=== PATIENT | female | born 1980 | race Caucasian/White ===

== ENCOUNTER 2022-03-15 09:37 | Outpatient (CLI) | payer OTHER | END 2022-03-15 09:38 | disposition home or self-care (01) | LOC: BICMAMMO 09:37 | PROVIDERS: ATTEND Registered Nurse | DX: N63.11 Unspecified lump in the right breast, upper outer quadrant (principal) | CPT/HCPCS: 77066; G0279 ==

== ENCOUNTER 2022-05-03 11:29 | Inpatient (IN) | payer SELFPAY ==
[2022-05-03 11:59] LABS: Hemoglobin 14.5 g/dL (12.0-16.0); Mean Corpuscular HGB CONC 31.8 g/dL (32.0-36.0); Mean Corpuscular Hemoglobin 29.3 pg (27.0-31.0); Mean Corpuscular Volume 92.3 fL (78.0-98.0); Mean Platelet Volume 9.8 fL (7.4-10.4); Platelet Count 227 thou/uL (130-400); RBC Distribution Width 13.6 % (11.5-14.5); Red Blood Cell (RBC) Count 4.94 mill/uL (4.20-5.40); White Blood Cell (WBC) Count 25.6 thou/uL (4.8-10.8)
[2022-05-03] MEDS ORDERED: Iopamidol-370 76% 500 ML 1 ML ONE (12:06)
[2022-05-03 12:16] LABS: Band 7 % (5-11); Hypersemented Neutrophil SLIGHT; Lymphocytes 4 % (21-51); MDiff Complete? YES; Monocytes 1 % (0-10); Neutrophil 88 % (42-75); Platelet Morphology Comment Appears Adequate; Polychromasia SLIGHT = 2-3 cells (100X) (0-2/hpf)
[2022-05-03 12:17] LABS: ALT (SGPT) 7 U/L (8-55); AST (SGOT) 12 U/L (5-34); Albumin 4.3 g/dL (3.5-5.0); Alkaline Phosphatase 81 U/L (40-110); Anion Gap 14 mmol/L (10-20); BUN (Urea Nitrogen) 17 mg/dL (7.0-18.7); Bilirubin, Total 0.2 mg/dL (0.2-1.2); Calc. Creatinine Clearance 0 mL/min (70-130); Calcium 9.6 mg/dL (7.8-10.44); Carbon Dioxide 22 mmol/L (22-29); Chloride 108 mmol/L (98-107); Estimated GFR 95; Glucose 120 mg/dL (70-105); Potassium 4.7 mmol/L (3.5-5.1); Protein, Total 7.3 g/dL (6.0-8.3); Sodium 139 mmol/L (136-145)
[2022-05-03] MEDS ORDERED: Ondansetron PF 4 MG/2 ML Vial ONE (12:25)
[2022-05-03] MEDS ORDERED: Ketorolac Tromethamine 30 MG/ML VIAL ONE (12:25)
[2022-05-03] MEDS ORDERED: Morphine 4 MG/ML VIAL ONE (12:25)
[2022-05-03] MEDS ORDERED: Ondansetron PF 4 MG/2 ML Vial IVP PRN (13:38)
[2022-05-03] MEDS ORDERED: Morphine 2 MG/ML VIAL SLOW IVP PRN (13:38)
[2022-05-03 15:23] VITALS: BMI 26.0
[2022-05-03] MEDS: Nicotine 14 MG PATCH TD SCH (16:30)
[2022-05-03] MEDS ORDERED: Ibuprofen 800 MG TAB PO SCH (16:30)
[2022-05-03] MEDS ORDERED: Cefepime 1 GM in Sodium Chloride 0.9% 100 ML IVPB SCH (17:00)
[2022-05-03] MEDS: Cefepime 1 GM in Sodium Chloride 0.9% 100 ML IVPB SCH (18:21)
[2022-05-03] MEDS: Dexamethasone 4 MG TAB PO SCH (20:49)
[2022-05-03] MEDS: Famotidine 20 MG TAB PO SCH (20:49)
[2022-05-03] MEDS: Acetaminophen 325 MG TAB PO PRN (20:50)
[2022-05-03] MEDS: Metoprolol Tartrate 25 MG TAB PO SCH (20:54)
[2022-05-04 05:15] LABS: #Lymphocytes 1.1 thou/uL (1.20-3.40); #Monocytes 0.6 thou/uL (0.11-0.59); #Neutrophils 16.5 thou/uL (1.40-6.50); %Basophils 0.1 % (0.0-1.0); %Eosinophils 0.1 % (0.0-10.0); %Lymphocytes 6.1 % (21.0-51.0); %Monocytes 3.4 % (0.0-10.0); %Neutrophils 90.3 % (42.0-75.0); Hemoglobin 13.9 g/dL (12.0-16.0); Mean Corpuscular HGB CONC 32.6 g/dL (32.0-36.0); Mean Corpuscular Hemoglobin 30.3 pg (27.0-31.0); Mean Corpuscular Volume 93.2 fL (78.0-98.0); Mean Platelet Volume 10.5 fL (7.4-10.4); Platelet Count 179 thou/uL (130-400); RBC Distribution Width 13.2 % (11.5-14.5); Red Blood Cell (RBC) Count 4.59 mill/uL (4.20-5.40); White Blood Cell (WBC) Count 18.3 thou/uL (4.8-10.8)
[2022-05-04 05:28] LABS: INR-International Normal Ratio 1.1; Prothrombin Time 14.6 sec (12.0-14.7)
[2022-05-04 05:29] LABS: PTT 27.2 sec (22.9-36.1)
[2022-05-04 05:32] LABS: Anion Gap 14 mmol/L (10-20); BUN (Urea Nitrogen) 18 mg/dL (7.0-18.7); Calc. Creatinine Clearance 120 mL/min (70-130); Carbon Dioxide 20 mmol/L (22-29); Chloride 107 mmol/L (98-107); Estimated GFR 110; Glucose 120 mg/dL (70-105); Potassium 4.6 mmol/L (3.5-5.1); Sodium 136 mmol/L (136-145)
[2022-05-04] MEDS: Cefepime 1 GM in Sodium Chloride 0.9% 100 ML IVPB SCH ×2 (05:51→18:16)
[2022-05-04] MEDS: Acetaminophen 325 MG TAB PO PRN ×2 (05:51→17:07)
[2022-05-04] MEDS ORDERED: Morphine 2 MG/ML VIAL SLOW IVP PRN (08:27)
[2022-05-04] MEDS ORDERED: Morphine 2 MG/ML VIAL SLOW IVP SCH (08:30)
[2022-05-04] MEDS ORDERED: Sodium Bicarbonate 2.5 MEQ/5 ML VIAL ONE (08:40)
[2022-05-04] MEDS ORDERED: Lidocaine 2% PF 5 ML VIAL ONE (08:40)
[2022-05-04] MEDS ORDERED: Losartan 25 MG TAB PO SCH (09:00)
[2022-05-04] MEDS: Morphine 4 MG/ML VIAL SLOW IVP PRN ×2 (09:54→15:02)
[2022-05-04] MEDS: Dexamethasone 4 MG TAB PO SCH ×2 (09:56→21:19)
[2022-05-04] MEDS: Metoprolol Tartrate 25 MG TAB PO SCH ×2 (09:56→21:19)
[2022-05-04] MEDS: Famotidine 20 MG TAB PO SCH ×2 (09:56→21:19)
[2022-05-04 10:25] LABS: Fluid, pH - Pleural Fld Greater than 7.50 (7.60 - 7.66)
[2022-05-04 10:33] LABS: Pleural Fluid, Amylase Less than 30 U/L (Not Available); Pleural Fluid, Glucose 114 mg/dL; Pleural Fluid, LDH 99 U/L (Not Available)
[2022-05-04 10:58] LABS: RBC Count-Automated (BF) 145 /cu.mm; WBC/Nucleated-Auto (BF) 445 /cu.mm
[2022-05-04 11:51] LABS: Body Fluid Source Thoracentesis Fluid
[2022-05-04 11:52] LABS: BF Color Yellow; Clarity Hazy (Clear); Tube # EDTA
[2022-05-04 11:54] LABS: BF Segmented Neutrophils 15 %; Cell Count Non Hematic 22 %; Lymphocytes 63 %
[2022-05-04] MEDS: traMADol HCl 50 MG TAB PO PRN (12:28)
[2022-05-04] MEDS: Nicotine 14 MG PATCH TD SCH (17:16)
[2022-05-05] MEDS: Morphine 4 MG/ML VIAL SLOW IVP PRN ×3 (03:41→21:50)
[2022-05-05 05:22] LABS: #Lymphocytes 1.1 thou/uL (1.20-3.40); #Monocytes 0.8 thou/uL (0.11-0.59); #Neutrophils 15.9 thou/uL (1.40-6.50); %Basophils 0.1 % (0.0-1.0); %Eosinophils 0.1 % (0.0-10.0); %Lymphocytes 6.4 % (21.0-51.0); %Monocytes 4.4 % (0.0-10.0); %Neutrophils 89.1 % (42.0-75.0); Hemoglobin 14.2 g/dL (12.0-16.0); Mean Corpuscular HGB CONC 32.3 g/dL (32.0-36.0); Mean Corpuscular Hemoglobin 29.7 pg (27.0-31.0); Mean Corpuscular Volume 92.1 fL (78.0-98.0); Mean Platelet Volume 10.2 fL (7.4-10.4); Platelet Count 196 thou/uL (130-400); RBC Distribution Width 12.9 % (11.5-14.5); Red Blood Cell (RBC) Count 4.77 mill/uL (4.20-5.40); White Blood Cell (WBC) Count 17.8 thou/uL (4.8-10.8)
[2022-05-05 05:26] LABS: Anion Gap 12 mmol/L (10-20); BUN (Urea Nitrogen) 18 mg/dL (7.0-18.7); Calc. Creatinine Clearance 123 mL/min (70-130); Calcium 8.7 mg/dL (7.8-10.44); Carbon Dioxide 22 mmol/L (22-29); Chloride 107 mmol/L (98-107); Estimated GFR 111; Glucose 137 mg/dL (70-105); Potassium 4.2 mmol/L (3.5-5.1); Sodium 137 mmol/L (136-145)
[2022-05-05] MEDS: Cefepime 1 GM in Sodium Chloride 0.9% 100 ML IVPB SCH (05:50)
[2022-05-05] MEDS: Famotidine 20 MG TAB PO SCH ×2 (08:53→21:48)
[2022-05-05] MEDS: Dexamethasone 4 MG TAB PO SCH ×2 (08:53→21:48)
[2022-05-05] MEDS: Metoprolol Tartrate 25 MG TAB PO SCH (08:53)
[2022-05-05] MEDS ORDERED: Amlodipine 5 MG TAB PO SCH (09:00)
[2022-05-05] MEDS ORDERED: Bupivacaine 0.25% HCL 30 ML VIAL ONE (09:19)
[2022-05-05] MEDS ORDERED: Lidocaine 2% PF 5 ML VIAL ONE (09:19)
[2022-05-05] MEDS ORDERED: Midazolam HCl 2 mg/2 ml Vial ONE (10:15)
[2022-05-05] MEDS ORDERED: Propofol 500 MG/50 ML VIAL ONE (10:15)
[2022-05-05] MEDS ORDERED: fentaNYL Citrate/PF 100 MCG/2 ML SYRINGE ONE (10:15)
[2022-05-05] MEDS ORDERED: PROPOFOL 200 MG/20 ML VIAL ONE (10:55)
[2022-05-05] MEDS ORDERED: Ketorolac Tromethamine 30 MG/ML VIAL ONE (10:55)
[2022-05-05] MEDS ORDERED: Ondansetron HCl/PF 4 MG/2 ML Vial IVP PRN (11:18)
[2022-05-05] MEDS ORDERED: Promethazine HCl 25 MG/ML VIAL IVPB PRN (11:18)
[2022-05-05] MEDS ORDERED: Meperidine HCl/PF 25 MG/ML VIAL SLOW IVP PRN (11:18)
[2022-05-05] MEDS: Nicotine 14 MG PATCH TD SCH (16:31)
[2022-05-05] MEDS: Cefepime 2 GM in Sodium Chloride 0.9% 100 ML IVPB SCH (17:50)
[2022-05-05] MEDS: Acetaminophen 325 MG TAB PO PRN (21:48)
[2022-05-06 05:19] LABS: #Lymphocytes 1.2 thou/uL (1.20-3.40); #Monocytes 1.1 thou/uL (0.11-0.59); #Neutrophils 16.9 thou/uL (1.40-6.50); %Eosinophils 0.1 % (0.0-10.0); %Lymphocytes 6.2 % (21.0-51.0); %Monocytes 5.9 % (0.0-10.0); %Neutrophils 87.8 % (42.0-75.0); Hemoglobin 14.1 g/dL (12.0-16.0); Mean Corpuscular HGB CONC 32.2 g/dL (32.0-36.0); Mean Corpuscular Hemoglobin 29.5 pg (27.0-31.0); Mean Corpuscular Volume 91.6 fL (78.0-98.0); Platelet Count 200 thou/uL (130-400); Red Blood Cell (RBC) Count 4.77 mill/uL (4.20-5.40); White Blood Cell (WBC) Count 19.2 thou/uL (4.8-10.8)
[2022-05-06 05:32] LABS: Anion Gap 10 mmol/L (10-20); BUN (Urea Nitrogen) 25 mg/dL (7.0-18.7); Calc. Creatinine Clearance 115 mL/min (70-130); Calcium 8.7 mg/dL (7.8-10.44); Carbon Dioxide 26 mmol/L (22-29); Chloride 103 mmol/L (98-107); Estimated GFR 105; Glucose 132 mg/dL (70-105); Potassium 4.2 mmol/L (3.5-5.1); Sodium 135 mmol/L (136-145)
[2022-05-06] MEDS: Cefepime 2 GM in Sodium Chloride 0.9% 100 ML IVPB SCH ×2 (05:57→17:27)
[2022-05-06] MEDS: Morphine 4 MG/ML VIAL SLOW IVP PRN ×3 (05:59→22:02)
[2022-05-06] MEDS: Acetaminophen 325 MG TAB PO PRN ×4 (06:00→22:00)
[2022-05-06] MEDS: Amlodipine 10 MG TAB PO SCH (10:02)
[2022-05-06] MEDS: Famotidine 20 MG TAB PO SCH ×2 (10:02→21:04)
[2022-05-06] MEDS: Dexamethasone 4 MG TAB PO SCH ×2 (10:02→21:04)
[2022-05-06] MEDS: Nicotine 14 MG PATCH TD SCH (17:27)
[2022-05-06] MEDS: traMADol HCl 50 MG TAB PO PRN (21:03)
[2022-05-07] MEDS ORDERED: Ketorolac Tromethamine 30 MG/ML VIAL IVP SCH (01:15)
[2022-05-07 05:01] LABS: #Neutrophils 17.5 thou/uL (1.40-6.50); %Lymphocytes 5.3 % (21.0-51.0); %Monocytes 5.2 % (0.0-10.0); %Neutrophils 89.4 % (42.0-75.0); Hemoglobin 14.2 g/dL (12.0-16.0); Mean Corpuscular Hemoglobin 29.4 pg (27.0-31.0); Mean Corpuscular Volume 91.7 fL (78.0-98.0); Mean Platelet Volume 9.9 fL (7.4-10.4); Platelet Count 205 thou/uL (130-400); Red Blood Cell (RBC) Count 4.85 mill/uL (4.20-5.40); White Blood Cell (WBC) Count 19.6 thou/uL (4.8-10.8)
[2022-05-07 05:16] LABS: Anion Gap 11 mmol/L (10-20); BUN (Urea Nitrogen) 22 mg/dL (7.0-18.7); Calc. Creatinine Clearance 123 mL/min (70-130); Calcium 8.7 mg/dL (7.8-10.44); Carbon Dioxide 25 mmol/L (22-29); Chloride 103 mmol/L (98-107); Estimated GFR 111; Glucose 143 mg/dL (70-105); Potassium 4.2 mmol/L (3.5-5.1); Sodium 135 mmol/L (136-145)
[2022-05-07] MEDS: Morphine 4 MG/ML VIAL SLOW IVP PRN ×4 (06:02→23:02)
[2022-05-07] MEDS: Cefepime 2 GM in Sodium Chloride 0.9% 100 ML IVPB SCH ×2 (06:13→18:32)
[2022-05-07] MEDS: Acetaminophen 325 MG TAB PO PRN ×2 (09:52→18:34)
[2022-05-07] MEDS: Famotidine 20 MG TAB PO SCH ×2 (09:53→20:05)
[2022-05-07] MEDS: Dexamethasone 4 MG TAB PO SCH ×2 (09:53→20:05)
[2022-05-07] MEDS: Amlodipine 10 MG TAB PO SCH (09:53)
[2022-05-07] MEDS: Ondansetron ODT 4 MG TAB PO PRN (13:06)
[2022-05-07] MEDS: Nicotine 14 MG PATCH TD SCH (17:23)
[2022-05-07] MEDS: traMADol HCl 50 MG TAB PO PRN (20:04)
[2022-05-08] MEDS: Cefepime 2 GM in Sodium Chloride 0.9% 100 ML IVPB SCH ×2 (05:05→17:31)
[2022-05-08] MEDS: Morphine 4 MG/ML VIAL SLOW IVP PRN ×3 (05:07→17:32)
[2022-05-08 05:44] LABS: Anion Gap 11 mmol/L (10-20); BUN (Urea Nitrogen) 19 mg/dL (7.0-18.7); Calc. Creatinine Clearance 129 mL/min (70-130); Carbon Dioxide 27 mmol/L (22-29); Chloride 104 mmol/L (98-107); Potassium 5.1 mmol/L (3.5-5.1); Sodium 137 mmol/L (136-145)
[2022-05-08 05:45] LABS: Calcium 9.2 mg/dL (7.8-10.44); Estimated GFR 112; Glucose 130 mg/dL (70-105)
[2022-05-08 06:21] LABS: Hemoglobin 14.5 g/dL (12.0-16.0); Lymphocytes 10 % (21-51); MDiff Complete? YES; Mean Corpuscular HGB CONC 31.9 g/dL (32.0-36.0); Mean Corpuscular Hemoglobin 29.2 pg (27.0-31.0); Mean Corpuscular Volume 91.4 fL (78.0-98.0); Mean Platelet Volume 9.7 fL (7.4-10.4); Monocytes 7 % (0-10); Neutrophil 83 % (42-75); Platelet Count 219 thou/uL (130-400); Platelet Morphology Comment Appears Adequate; RBC Distribution Width 12.9 % (11.5-14.5); RBC Morphology Normal; Red Blood Cell (RBC) Count 4.97 mill/uL (4.20-5.40); White Blood Cell (WBC) Count 20.6 thou/uL (4.8-10.8)
[2022-05-08] MEDS: traMADol HCl 50 MG TAB PO PRN ×2 (08:18→20:32)
[2022-05-08] MEDS: Famotidine 20 MG TAB PO SCH ×2 (08:19→20:32)
[2022-05-08] MEDS: Amlodipine 10 MG TAB PO SCH (08:19)
[2022-05-08] MEDS: Dexamethasone 4 MG TAB PO SCH ×2 (08:19→20:32)
[2022-05-08] MEDS: Nicotine 14 MG PATCH TD SCH (17:14)
[2022-05-08] MEDS: Acetaminophen 325 MG TAB PO PRN (19:01)
[2022-05-08] MEDS ORDERED: Ketorolac Tromethamine 30 MG/ML VIAL IVP SCH (20:45)
[2022-05-08] MEDS: Ondansetron ODT 4 MG TAB PO PRN (21:32)
[2022-05-09] MEDS: Cefepime 2 GM in Sodium Chloride 0.9% 100 ML IVPB SCH ×2 (05:09→17:49)
[2022-05-09] MEDS: Amlodipine 10 MG TAB PO SCH (08:57)
[2022-05-09] MEDS: Dexamethasone 4 MG TAB PO SCH ×2 (08:58→20:11)
[2022-05-09] MEDS: Famotidine 20 MG TAB PO SCH ×2 (08:58→20:11)
[2022-05-09] MEDS: Acetaminophen 325 MG TAB PO PRN ×2 (09:00→20:12)
[2022-05-09] MEDS: Morphine 4 MG/ML VIAL SLOW IVP PRN ×2 (09:03→20:15)
[2022-05-09] MEDS: traMADol HCl 50 MG TAB PO PRN (16:07)
[2022-05-09] MEDS: Nicotine 14 MG PATCH TD SCH (16:37)
[2022-05-09 19:13] LABS: Fungus Stain Final report (.)
[2022-05-10] MEDS: traMADol HCl 50 MG TAB PO PRN (03:56)
[2022-05-10] MEDS: Cefepime 2 GM in Sodium Chloride 0.9% 100 ML IVPB SCH (06:01)
[2022-05-10 08:01] VITALS: BP 153/78; TEMP 98.2
[2022-05-10] MEDS ORDERED: Dexamethasone 4 MG TAB PO SCH ×2 (08:45→17:00)
[2022-05-10] MEDS: Famotidine 20 MG TAB PO SCH (09:11)
[2022-05-10] MEDS: Amlodipine 10 MG TAB PO SCH (09:11)
[2022-05-10] MEDS: Morphine 4 MG/ML VIAL SLOW IVP PRN (09:14)
[2022-05-10] MEDS ORDERED: Ketorolac Tromethamine 30 MG/ML VIAL IVP PRN (11:33)
[2022-05-10] MEDS ORDERED: Mirtazapine 15 MG TAB PO SCH (21:00)
== END 2022-05-10 15:12 | disposition home or self-care (01) | DRG 516 ==
LOC: ERS 11:29 → 2SW 14:44 → OBSVTOIN 05-04 12:07 → MSONC 05-07 17:28
PROVIDERS: ADMIT Internal Medicine; ATTEND Internal Medicine
PROC: 0W9B3ZZ Drainage of Left Pleural Cavity, Percutaneous Approach (ICD-10-PCS; 2022-05-04)
PROC: DPYC7ZZ Contact Radiation of Other Bone (ICD-10-PCS; principal; 2022-05-05)
PROC: 0JH60WZ Insertion of Totally Implantable Vascular Access Device into Chest Subcutaneous Tissue and Fascia, Open Approach (ICD-10-PCS; 2022-05-05)
PROC: 02HV33Z Insertion of Infusion Device into Superior Vena Cava, Percutaneous Approach (ICD-10-PCS; 2022-05-05)
PROC: B5181ZA Fluoroscopy of Superior Vena Cava using Low Osmolar Contrast, Guidance (ICD-10-PCS; 2022-05-05)
DX: C79.51 Secondary malignant neoplasm of bone (principal); Z20.822 Contact with and (suspected) exposure to COVID-19; C50.911 Malignant neoplasm of unspecified site of right female breast; M84.58XA Pathological fracture in neoplastic disease, other specified site, initial encounter for fracture; I31.39 Other pericardial effusion (noninflammatory); J90 Pleural effusion, not elsewhere classified; I10 Essential (primary) hypertension; F17.210 Nicotine dependence, cigarettes, uncomplicated; D05.12 Intraductal carcinoma in situ of left breast; Z79.899 Other long term (current) drug therapy; Z80.0 Family history of malignant neoplasm of digestive organs; Z80.1 Family history of malignant neoplasm of trachea, bronchus and lung; Z80.41 Family history of malignant neoplasm of ovary; Z82.49 Family history of ischemic heart disease and other diseases of the circulatory system; Z71.6 Tobacco abuse counseling; Z17.0 Estrogen receptor positive status [ER+]; Z80.8 Family history of malignant neoplasm of other organs or systems; Z82.3 Family history of stroke
CPT/HCPCS: 32555; 36415; 71045; 71275; 77014; 77280; 77285; 77306; 77332; 77334; 77412; 80048; 80053; 82150; 82945; 83605; 83615; 83880; 84157; 84484; 85025; 85060; 85610; 85730; 87040; 87070; 87116; 87205; 87206; 87811; 88112; 88305; 88341; 88342; 89051; 93005; 93306; 96374; 96375; 96376; C1788; G0378; J0692; J1642; J1885; J2001; J2250; J2270; J2405; J2704; J3490; J8540; Q0162; Q9967; S0020; U0003; U0005

== ENCOUNTER 2022-08-05 08:29 | Outpatient (CLI) | payer SELFPAY | END 2022-08-05 08:30 | disposition home or self-care (01) | LOC: SPEC 08:29 | PROVIDERS: ATTEND Internal Medicine Hematology & Oncology | DX: C50.811 Malignant neoplasm of overlapping sites of right female breast (principal); R22.33 Localized swelling, mass and lump, upper limb, bilateral; I23.4 Rupture of chordae tendineae as current complication following acute myocardial infarction | CPT/HCPCS: 36598; J1642 ==

== ENCOUNTER 2022-11-08 12:20 | Outpatient (CLI) | payer OTHER ==
[~2022-11-08 12:20] MED LIST: Iopamidol 370 76% 100 ML VIAL ONE
== END 2022-11-08 12:21 | disposition home or self-care (01) ==
LOC: CT 12:20
PROVIDERS: ATTEND Internal Medicine Hematology & Oncology
DX: C50.811 Malignant neoplasm of overlapping sites of right female breast (principal); C79.51 Secondary malignant neoplasm of bone; R91.8 Other nonspecific abnormal finding of lung field
CPT/HCPCS: 71260; 74177; 82565; Q9967

== ENCOUNTER 2024-02-09 09:01 | Outpatient (CLI) | payer OTHER | END 2024-02-09 09:02 | disposition home or self-care (01) | LOC: CT 09:01 | PROVIDERS: ATTEND Internal Medicine Hematology & Oncology | DX: C50.811 Malignant neoplasm of overlapping sites of right female breast (principal); C79.51 Secondary malignant neoplasm of bone | CPT/HCPCS: 71260; 74177; 78306; A9503 ==